=== PATIENT | female | born 1995 | race Caucasian/White ===

== ENCOUNTER 2016-06-01 22:21 | Emergency (ER) | payer OTHER ==
[2016-06-02 02:01] LABS: Hematocrit 44 % (35-47); Hemoglobin 14.5 g/dl (12.0-16.0); Mean Corpuscular HGB Conc 33 g/dl (31-36); Mean Corpuscular Hemoglobin 29 pg (27-31); Mean Corpuscular Volume 86 fL (80-97); Mean Platelet Volume 8 um3 (7.4-10.4); Red Blood Count 5.06 10^6/ul (4.0-5.4); Red Cell Distribution Width 13 % (10.5-15); White Blood Count 11.6 10^3/ul (3.5-10.8)
[2016-06-02 02:19] LABS: ALT 34 U/L (7-52); AST 22 U/L (13-39); Albumin 4.4 g/dL (3.2-5.2); Alkaline Phosphatase 80 U/L (34-104); Anion Gap 8 mmol/L (2-11); BUN/Creatinine Ratio 12.2 (8-20); Blood Urea Nitrogen 10 mg/dL (6-24); CO2 Carbon Dioxide 23 mmol/L (22-32); Calcium 9.5 mg/dL (8.6-10.3); Chloride 104 mmol/L (101-111); EGFR African American 112.1 (>60); EGFR Non-African American 87.2 (>60); Globulin 2.8 g/dL (2-4); Glucose 94 mg/dL (70-100); Potassium 4.1 mmol/L (3.5-5.0); Sodium 135 mmol/L (133-145); Total Protein 7.2 g/dL (6.4-8.9)
--- NOTE | 2016-06-02 02:31 | ED ---
Baudilio Dee Salem, scribed for Henry Gomez MD on 06/02/16 at 0158 . Lower Extremity - HPI Summary HPI Summary: Patient is a 21 y/o female who presents to the ED with numbness in her upper left thigh since a couple of weeks. She reports tingling and warmth in her left hip and down her LLE since today. She states she has not seen her PCP for CC and that she is concerned that it may be something other than a pinched nerve. She denies any other sx. - History of Current Complaint Chief Complaint: EDExtremityLower Stated Complaint: NUMBNESS AND TINGLING IN EXTREMITIES Time Seen by Provider: 06/02/16 00:55 Hx Obtained From: Patient Hx Last Menstrual Period: 10/22/15 Onset/Duration: Still Present Severity Initially: Moderate Severity Currently: Moderate Pain Intensity: 2 Pain Scale Used: 0-10 Numeric Timing: Constant Location: Radiates To - Down LLE. Associated Signs And Symptoms: Positive: Other - Numbness of upper left thigh. Tingling and warmth in her left hip. Aggravating Factor(s): Nothing Alleviating Factor(s): Nothing - Allergies/Home Medications Allergies/Adverse Reactions: Allergies Allergy/AdvReac Type Severity Reaction Status Date / Time Codeine Allergy Unknown Verified 11/09/15 20:42 Reaction Details Penicillins Allergy See Comment Verified 11/09/15 20:42 PMH/Surg Hx/FS Hx/Imm Hx Endocrine/Hematology History: Denies: Hx Diabetes Cardiovascular History: Denies: Hx Hypertension Respiratory History: Denies: Hx Asthma, Hx Pneumonia - Surgical History Surgery Procedure, Year, and Place: tonsillectomy Infectious Disease History: No Infectious Disease History: Denies: History Other Infectious Disease, Traveled Outside the [place] in Last 30 Days - Family History Known Family History: Positive: Cardiac Disease, Hypertension, Diabetes - Social History Alcohol Use: Occasionally Hx Substance Use: No Substance Use Type: Reports: None Hx Tobacco Use: No Smoking Status (MU): Never Smoked Tobacco Review of Systems Negative: Fever Positive: Other - Numbness of upper left thigh. Tingling and warmth in her left hip and down her LLE. All Other Systems Reviewed And Are Negative: Yes Physical Exam Triage Information Reviewed: Yes Vital Signs On Initial Exam: Initial Vitals Temp Pulse Resp BP Pulse Ox 98.2 F 123 18 154/91 100 04/03/17 22:25 06/01/16 22:25 06/01/16 22:25 06/01/16 22:25 06/01/16 22:25 Vital Signs Reviewed: Yes Appearance: Positive: Well-Appearing, No Pain Distress Skin: Positive: Warm Head/Face: Positive: Normal Head/Face Inspection Eyes: Positive: EOMI, ZENA ENT: Positive: Hearing grossly normal Neck: Positive: Supple Respiratory/Lung Sounds: Positive: Clear to Auscultation, Breath Sounds Present Cardiovascular: Positive: RRR Abdomen Description: Positive: Nontender, Soft Bowel Sounds: Positive: Present Musculoskeletal: Positive: Strength/ROM Intact Neurological: Positive: Sensory/Motor Intact, Alert, Oriented to Person Place, Time, Normal Gait Diagnostics - Vital Signs Vital Signs Temp Pulse Resp BP Pulse Ox 06/02/16 00:19 98.3 F 94 18 146/77 100 06/01/16 22:25 98.2 F 123 18 154/91 100 - Laboratory Lab Results: Lab Results 06/02/16 06/02/16 Range/Units 01:50 01:50 WBC 11.6 H (3.5-10.8) 10^3/ul RBC 5.06 (4.0-5.4) 10^6/ul Hgb 14.5 (12.0-16.0) g/dl Hct 44 (35-47) % MCV 86 (80-97) fL MCH 29 (27-31) pg MCHC 33 (31-36) g/dl RDW 13 (10.5-15) % Plt Count 266 (150-450) 10^3/ul MPV 8 (7.4-10.4) um3 Neut % (Auto) 76.3 (38-83) % Lymph % (Auto) 15.6 L (25-47) % Spink % (Auto) 5.9 (1-9) % Eos % (Auto) 1.5 (0-6) % Baso % (Auto) 0.7 (0-2) % Absolute Neuts (auto) 8.9 H (1.5-7.7) 10^3/ul Absolute Lymphs (auto) 1.8 (1.0-4.8) 10^3/ul Absolute Monos (auto) 0.7 (0-0.8) 10^3/ul Absolute Eos (auto) 0.2 (0-0.6) 10^3/ul Absolute Basos (auto) 0.1 (0-0.2) 10^3/ul Absolute Nucleated RBC 0.01 10^3/ul Nucleated RBC % 0.1 Sodium 135 (133-145) mmol/L Potassium 4.1 (3.5-5.0) mmol/L Chloride 104 (101-111) mmol/L Carbon Dioxide 23 (22-32) mmol/L Anion Gap 8 (2-11) mmol/L BUN 10 (6-24) mg/dL Creatinine 0.82 (0.51-0.95) mg/dL Est GFR ( Amer) 112.1 (>60) Est GFR (Non-Af Amer) 87.2 (>60) BUN/Creatinine Ratio 12.2 (8-20) Glucose 94 (70-100) mg/dL Calcium 9.5 (8.6-10.3) mg/dL Magnesium 2.0 (1.9-2.7) mg/dL Total Bilirubin 0.60 (0.2-1.0) mg/dL AST 22 (13-39) U/L ALT 34 (7-52) U/L Alkaline Phosphatase 80 (34-104) U/L Total Protein 7.2 (6.4-8.9) g/dL Albumin 4.4 (3.2-5.2) g/dL Globulin 2.8 (2-4) g/dL Albumin/Globulin Ratio 1.6 (1-3) Beta HCG, Quant < 0.60 mIU/mL Result Diagrams: 06/02/16 01:50 06/02/16 01:50 Lab Statement: Any lab studies that have been ordered have been reviewed, and results considered in the medical decision making process. Re-Evaluation - Re-Evaluation First Eval Change: Improved Lower Extremity Course/Dx - Course Course Of Treatment: 21 y/o female presents with numbness of her upper left thigh since a couple of weeks and tingling of her left hip since today. Pt is stable and will be DC. - Diagnoses Provider Diagnoses: Paresthesia Discharge - Discharge Plan Condition: Stable Disposition: HOME Patient Education Materials: Paresthesia (ED) Referrals: Brad Montilla MD [Primary Care Provider] - Additional Instructions: Follow up with PCP. The documentation as recorded by the Baudilio rae Salem accurately reflects the service I personally performed and the decisions made by me, Henry Gomez MD.
[2016-06-02 03:10] VITALS: BP 137/74
== END 2016-06-02 03:09 | disposition home or self-care (01) ==
LOC: ED 22:21
DX: R20.9 Unspecified disturbances of skin sensation (principal)
CPT/HCPCS: 36415; 80053; 83735; 84702; 85025; 99283

== ENCOUNTER → 2016-10-04 21:40 | Emergency (ER) | payer OTHER ==
[~2016-10-04 21:40] MED LIST: diPHENhydraMINE PO* 25 MG ONE; diPHENhydraMINE PO* 25 MG PO ONE
--- NOTE | 2016-10-04 22:49 | ED ---
Allergic Reaction/Systemic - HPI Summary HPI Summary: 21F presents with rash on chest and tingling sensation in lips. She started a new medication today for PCOS. she does have history of anxiety and feels that the rash is worsening her anxiety. She has history of heat rash in the area also. She denies any chest pain, SOB, or difficulty swallowing. She denies any other new medication or products. She denies any abdominal pain, n/v. - History of Current Complaint Chief Complaint: EDPsychosocial Time Seen by Provider: 10/04/16 22:00 Hx Last Menstrual Period: 10/22/15 Pain Intensity: 0 - Allergies/Home Medications Allergies/Adverse Reactions: Allergies Allergy/AdvReac Type Severity Reaction Status Date / Time Codeine Allergy Unknown Verified 10/04/16 21:42 Reaction Details Penicillins Allergy See Comment Verified 10/04/16 21:42 PMH/Surg Hx/FS Hx/Imm Hx Endocrine/Hematology History: Denies: Hx Diabetes Cardiovascular History: Denies: Hx Hypertension Respiratory History: Denies: Hx Asthma, Hx Pneumonia - Surgical History Surgery Procedure, Year, and Place: tonsillectomy Infectious Disease History: No Infectious Disease History: Denies: History Other Infectious Disease, Traveled Outside the [place] in Last 30 Days - Family History Known Family History: Positive: Cardiac Disease, Hypertension, Diabetes - Social History Alcohol Use: Weekly Hx Substance Use: No Substance Use Type: Reports: None Hx Tobacco Use: No Smoking Status (MU): Light Every Day Tobacco Smoker Review of Systems Negative: Fever Negative: Chest Pain Negative: Shortness Of Breath Positive: Rash All Other Systems Reviewed And Are Negative: Yes Physical Exam Triage Information Reviewed: Yes Vital Signs On Initial Exam: Initial Vitals Temp Pulse Resp BP Pulse Ox 98.5 F 92 16 142/85 97 10/04/16 21:44 10/04/16 21:44 10/04/16 21:44 10/04/16 21:44 10/04/16 21:44 Vital Signs Reviewed: Yes Appearance: Positive: Well-Appearing Skin: Positive: Warm, Dry, Other - urticaric rash near shoulder, tiny pinypoint red area near neck Head/Face: Positive: Normal Head/Face Inspection Eyes: Positive: Normal, EOMI, ZENA, Conjunctiva Clear ENT: Positive: Normal ENT inspection, Pharynx normal, TMs normal Respiratory/Lung Sounds: Positive: Clear to Auscultation, Breath Sounds Present Cardiovascular: Positive: Normal, RRR Abdomen Description: Positive: Nontender, Soft Bowel Sounds: Positive: Present - [place] Coma Scale Coma Scale Total: 15 Diagnostics - Vital Signs Vital Signs Temp Pulse Resp BP Pulse Ox 10/04/16 21:44 98.5 F 92 16 142/85 97 - Laboratory Lab Statement: Any lab studies that have been ordered have been reviewed, and results considered in the medical decision making process. Allergic Reaction Course/Dx - Course Course Of Treatment: 21F presents with rash on chest and tingling sensation in lips. She started a new medication today for PCOS. she does have history of anxiety and feels that the rash is worsening her anxiety. She has history of heat rash in the area also. She denies any chest pain, SOB, or difficulty swallowing. She denies any other new medication or products. on exam urticaric like rash near shoulder but heat rash vs urticara near neck. gave dose of bendaryl and rash near shoulder improved and patient symptoms resolved. told to continue benadryl and stop medication as will treat as allergic reaction at this point rather than heat rash with anxiety. patient understands and agrees with plan. - Diagnoses Differential Diagnosis/HQI/PQRI: Positive: Local Allergic Reaction, Urticaria, Other - heat rash, anxiety Provider Diagnoses: Rash Discharge - Discharge Plan Condition: Good Disposition: HOME Patient Education Materials: Urticaria (ED) Referrals: Brad Montilla MD [Primary Care Provider] - Additional Instructions: You are being treated for potential allergic reaction, could be heat rash but will treat as allergic for now Take Benadryl every 6 hours as need for allergic reaction symptoms Return to ED if develop any shortness of breath or difficulty swallowing or any new or worsening symptoms
[2016-10-04 23:08] VITALS: BP 130/89
== END | disposition home or self-care (01) ==
LOC: ED 21:40
DX: R21 Rash and other nonspecific skin eruption (principal); F17.210 Nicotine dependence, cigarettes, uncomplicated
CPT/HCPCS: 99282; A9270-GY

== ENCOUNTER 2017-08-09 06:56 | Emergency (ER) | payer OTHER ==
[2017-08-09] MEDS ORDERED: diPHENhydraMINE PO* 25 MG PO ONE (08:01)
--- NOTE | 2017-08-09 08:09 | ED ---
Skin Complaint - HPI Summary HPI Summary: Patient presents with skin reaction which she noticed this morning. She reports bilateral breast "hives" that are pruritic. She noticed these upon waking at about 4 AM when her cat woke her up. She took 25 mg of Benadryl at 6 AM and feels that her itching has improved however the rash remains. She denies fever, chills, chest pain, shortness of breath, headache, wheezing, chest tightness, abdominal pain nausea vomiting, difficulty breathing or swallowing. She admits she got a bug bite on her left inner knee on Wednesday night while she was hanging out at a bonfire, drinking raspberry vodka with her friends - this area developed redness, swelling and itching immediately - no pain or spread. She does admit to a history of eczema and "random hives" that occur occasionally throughout the year but not consistently enough for her to observe a pattern yet. She is been allergy tested without known allergies to food or environmental elements. She admits a second cousin has the same issue and he is also unaware of what causes his hives. She has an EpiPen at home and has one time in the past she developed throat swelling and tightness. Again, denies these symptoms today. She is quite anxious and reports she has a history of anxiety for which she treats with Wellbutrin. Otherwise no complaints. NOTE: pt has had her cat for years w/o allergy sx. Other potential triggers: *wore a shirt against borrowed by a friend Wednesday night - shirt smelled sour and possibly different detergent from hers *sprayed her bed in a different fashion w/ a [employer] scented spray last night *felt hotter than usual last night *had nexplanon placed 3 weeks ago - has had this in the past w/o difficulty - was last sexually active 3 months ago - has had tests since (negative ) and a period 3 weeks ago *bug bite wednesday *drinking a new brand of raspberry vodka Wednesday - History of Current Complaint Chief Complaint: EDAllergicReaction Time Seen by Provider: 08/09/17 07:14 Stated Complaint: ALLERGIC REACTION Hx Obtained From: Patient Hx Last Menstrual Period: 10/22/15 Pain Intensity: 0 - Allergy/Home Medications Allergies/Adverse Reactions: Allergies Allergy/AdvReac Type Severity Reaction Status Date / Time codeine AdvReac Unknown Verified 08/09/17 07:01 Reaction Details Penicillins AdvReac Unknown Verified 08/09/17 07:01 Reaction Details Home Medications: Home Medications Etonogestrel [Nexplanon] 68 mg IMPLANT ONCE 08/09/17 [History Confirmed 08/09/17 ] buPROPion SR TAB* [Wellbutrin SR TAB*] 150 mg PO QAM 08/09/17 [History Confirmed 08/09/17] PMH/Surg Hx/FS Hx/Imm Hx Previously Healthy: Yes Endocrine/Hematology History: Reports: Autoimmune Disease - eczema Denies: Hx Diabetes Cardiovascular History: Denies: Hx Hypertension Respiratory History: Reports: Other Respiratory Problems/Disorders Denies: Hx Asthma, Hx Pneumonia Sensory History: Reports: Hx Contacts or Glasses Opthamlomology History: Reports: Hx Contacts or Glasses - Surgical History Surgery Procedure, Year, and Place: tonsillectomy Infectious Disease History: No Infectious Disease History: Denies: History Other Infectious Disease, Traveled Outside the in Last 30 Days - Family History Known Family History: Positive: Cardiac Disease, Hypertension, Diabetes - Social History Alcohol Use: Occasionally Hx Substance Use: No Substance Use Type: Reports: None Hx Tobacco Use: No Smoking Status (MU): Never Smoked Tobacco Review of Systems Constitutional: Negative Eyes: Negative ENT: Negative Negative: Chest Pain Negative: Shortness Of Breath Gastrointestinal: Negative Positive: no symptoms reported Musculoskeletal: Negative Positive: Rash Neurological: Negative Positive: Anxious All Other Systems Reviewed And Are Negative: Yes Physical Exam Triage Information Reviewed: Yes Vital Signs On Initial Exam: Initial Vitals Temp Pulse Resp BP Pulse Ox 97.9 F 89 16 129/97 97 08/09/17 06:57 08/09/17 06:57 08/09/17 06:57 08/09/17 06:57 08/09/17 06:57 Vital Signs Reviewed: Yes Appearance: Positive: Well-Appearing, No Pain Distress, Obese Skin: Positive: Warm, Skin Color Reflects Adequate Perfusion, Dry - diffuse, mild pink urticarial rash over breasts B/L and 1 well defined erythematous urticarial rash over Lt inner knee (no EM presence, no pustule, no vesicle, no streaking) Head/Face: Positive: Normal Head/Face Inspection Eyes: Positive: Normal, EOMI ENT: Positive: Normal ENT inspection, Hearing grossly normal, Pharynx normal Neck: Positive: Supple, No Lymphadenopathy Respiratory/Lung Sounds: Positive: Clear to Auscultation, Breath Sounds Present. Negative: Stridor, Wheezes Cardiovascular: Positive: Normal, Pulses are Symmetrical in both Upper and Lower Extremities Abdomen Description: Positive: Soft Bowel Sounds: Positive: Present Musculoskeletal: Positive: Normal, Strength/ROM Intact Neurological: Positive: Normal, Sensory/Motor Intact, Alert, Oriented to Person Place, Time, CN Intact II-III Psychiatric: Positive: Anxious Diagnostics - Vital Signs Vital Signs Temp Pulse Resp BP Pulse Ox 08/09/17 06:57 97.9 F 89 16 129/97 97 - Laboratory Lab Statement: Any lab studies that have been ordered have been reviewed, and results considered in the medical decision making process. Course/Dx - Course Course Of Treatment: The cause of pt's urticaria is not definitive today however she reports multiple variables that could be triggering her issue. It appears to be mild at this time. Advised 50mg benadryl now (she took 25 milligrams at home and offered another 25 here). She may also try ice topically for itching as well as hydrocortisone cream [id number] as needed. Advised to follow-up with radiology specialist in continue to document changes in an effort to find a pattern for her unknown hives. Review danger signs and symptoms of when to use her EpiPen and return the emergency Department. Patient agrees plan. - Diagnoses Provider Diagnoses: Acute urticaria Discharge - Sign-Out/Discharge Documenting (check all that apply): Discharge/Admit/Transfer - Discharge Plan Condition: Stable Disposition: HOME Patient Education Materials: Urticaria (ED) Forms: *Work Release Referrals: Brad Montilla MD [Primary Care Provider] - Additional Instructions: The definitive cause of your rash was not identified today however there are multiple variables that could've played a role (see below). 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 Call today to schedule an appointment for follow-up. In the meantime, you may continue Benadryl as needed for itching as well as topical hydrocortisone (may purchase over-the- counter - see label for directions on how to use). Is also advised that you avoid any scents, harsh chemicals, new foods or beverages, etc. *If you develop difficulty breathing or swallowing, inject yourself with your EpiPen in the thigh one time and return to the emergency department as soon as possible. Potential triggers: *wore a shirt against borrowed by a friend Wednesday *sprayed bed in a different fashion w/ a [employer] scented spray last night *felt hotter than usual last night *had nexplanon placed 3 weeks ago *bug bite Wednesday *drinking a new brand of raspberry vodka Wednesday night - Billing Disposition and Condition Condition: STABLE Disposition: Home
[2017-08-09 08:29] VITALS: BP 155/86
== END 2017-08-09 08:28 | disposition home or self-care (01) ==
LOC: ED 06:56
DX: L50.9 Urticaria, unspecified (principal); M35.9 Systemic involvement of connective tissue, unspecified; F41.9 Anxiety disorder, unspecified; Z82.49 Family history of ischemic heart disease and other diseases of the circulatory system; Z83.3 Family history of diabetes mellitus
CPT/HCPCS: 99282; A9270-GY